=== PATIENT | female | born 1980 | race Caucasian/White ===

== ENCOUNTER 2018-11-02 14:42 | Outpatient (CLI) | payer OTHER ==
--- NOTE | 2018-11-02 15:54 | ULT ---
LEFT BREAST ULTRASOUND LIMITED: Date: 11/02/18 HISTORY: Two palpable findings in the left breast, one at 2 o'clock and the other one at 12 o'clock. FINDINGS: Patient presents with two palpable findings in the left breast at 12 o'clock and 2 o'clock. These are as are evaluated with ultrasound. No solid or cystic mass, or other significant ultrasound finding to account for a palpable finding. There is somewhat asymmetric glandular tissue. Diagnostic mammogram showed no mammographic finding in either region of the left breast. IMPRESSION: BI-RADS Category 2 - Benign findings. Follow-up screening mammography at age 42, depending upon risk factors. If the patient develops any new palpable finding, follow-up breast ultrasound at that point in time i s suggested. POS: OFF
== END 2018-11-02 14:43 | disposition home or self-care (01) ==
LOC: BICMAMMO 14:42
PROVIDERS: ATTEND Obstetrics & Gynecology
DX: N63.0 Unspecified lump in unspecified breast (principal)
CPT/HCPCS: 77066; G0279

== ENCOUNTER 2019-01-26 14:11 | Emergency (ER) | payer OTHER ==
[2019-01-26] MEDS ORDERED: Ondansetron PF 4 MG/2 ML Vial ONE (14:32)
[2019-01-26 14:51] LABS: #Basophils 0.1 thou/uL (0.0-0.2); #Eosinphils 0.1 thou/uL (0.0-0.7); #Lymphocytes 0.6 thou/uL (1.20-3.40); #Monocytes 0.4 thou/uL (0.11-0.59); #Neutrophils 6.4 thou/uL (1.40-6.50); %Basophils 1.3 % (0.0-1.0); %Eosinophils 1.5 % (0.0-10.0); %Lymphocytes 8.4 % (21.0-51.0); %Monocytes 5.6 % (0.0-10.0); %Neutrophils 83.2 % (42.0-75.0); Hemoglobin 13.1 g/dL (12.0-16.0); Mean Corpuscular HGB CONC 32.4 g/dL (32.0-36.0); Mean Corpuscular Hemoglobin 30.6 pg (27.0-31.0); Mean Corpuscular Volume 94.3 fL (78.0-98.0); Mean Platelet Volume 8.1 fL (7.4-10.4); Platelet Count 205 thou/uL (130-400); Red Blood Cell (RBC) Count 4.29 mill/uL (4.20-5.40); White Blood Cell (WBC) Count 7.6 thou/uL (4.8-10.8)
[2019-01-26 15:07] LABS: ALT (SGPT) 12 U/L (8-55); AST (SGOT) 18 U/L (5-34); Albumin 4.2 g/dL (3.5-5.0); Alkaline Phosphatase 56 U/L (40-150); Anion Gap 11 mmol/L (10-20); BUN (Urea Nitrogen) 14 mg/dL (7.0-18.7); Bilirubin, Total 0.8 mg/dL (0.2-1.2); Calc. Creatinine Clearance 0 mL/min (70-130); Calcium 9.3 mg/dL (7.8-10.44); Carbon Dioxide 28 mmol/L (22-29); Chloride 104 mmol/L (98-107); Estimated GFR-MDRD 85; Globulin 2.6 g/dL (2.4-3.5); Glucose 91 mg/dL (70-105); Lipase 19 U/L (8-78); Potassium 3.7 mmol/L (3.5-5.1); Protein, Total 6.8 g/dL (6.0-8.3); Sodium 139 mmol/L (136-145)
--- NOTE | 2019-01-26 15:18 | RAD ---
ACUTE ABDOMINAL SERIES: Date: 01/26/19 PROVIDED CLINICAL HISTORY: Abdominal pain. FINDINGS: No comparison. Cardiac and mediastinal silhouette is within normal limits. No focal consolidation, pleural fluid, or pneumothorax apparent. The abdominal bowel gas pattern is nonspecific. There is conspicuous colonic fecal retention suggesti ng constipation. No evidence for pneumoperitoneum. No radiodensity overlying the inferior aspect of t he right renal shadow may reflect renal calculus. Phleboliths overlie the pelvis. The osseous structu res demonstrate no concerning osteoblastic or osteolytic lesions. 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 IMPRESSION: 1. No evidence for an acute cardiopulmonary process. 2. Conspicuous colonic fecal retention suggesting constipation. 3. Possible right nephrolithiasis. POS: OFF
== END 2019-01-26 16:10 | disposition home or self-care (01) ==
LOC: SCSER 14:11
DX: K59.09 Other constipation (principal); R11.2 Nausea with vomiting, unspecified
CPT/HCPCS: 74022; 80053; 83605; 83690; 85025; 96361; 96374; J0500; J2405